=== PATIENT | female | born 1990 | race Caucasian/White ===

== ENCOUNTER → 2019-06-27 14:38 | Outpatient (CLI) | payer BC, SELFPAY ==
--- NOTE | ~2019-06-27 | US_ITS ---
EXAMINATION: US OB transvaginal DATE: 06/27/2019 14:59 INDICATION: Uncertain dates. TECHNIQUE: Real-time transvaginal pelvic ultrasound was performed. COMPARISON: None. FINDINGS: The uterus measures 7.2 x 5.3 x 4.6 cm. There is an intrauterine gestational sac. A yolk sac is ident ified. The crown rump length measures 9 mm, which correlates with an estimated gestational age of 6 weeks and 6 day(s) (+/-) 4 day(s). heart motion is identified measuring 121 beats per min [place] (bpm) by M-mode Doppler. The right ovary measures 2.4 x 1.7 x 2.1 cm. The left ovary measures 2.9 x 1.4 x 2.4 cm. There is no free fluid in the pelvis. IMPRESSION: 1. Single living intrauterine gestation with estimated date of delivery of 02/14/2020. Reviewed, dictated and finalized at location A. INE HEDDLE CLEANER IMPRESSION: 1. Single living intrauterine gestation with estimated date of delivery of 01/23.
== END ==
PROVIDERS: PCP Internal Medicine; Visit Provider Nurse Practitioner
DX: Z36.9 Encounter for antenatal screening, unspecified (principal); Z3A.00 Weeks of gestation of pregnancy not specified
CPT/HCPCS: 76817

== ENCOUNTER → 2019-07-10 15:54 | Outpatient (CLI) | payer BC, SELFPAY ==
--- NOTE | ~2019-07-10 | US_ITS ---
EXAMINATION: US OB transvaginal DATE: 07/10/2019 16:14 INDICATION: Vaginal spotting. TECHNIQUE: Real-time transvaginal obstetric ultrasound. FINDINGS: No prior studies for comparison. The uterus measures 8.4 x 6.6 x 6.8 cm. There is an intrauterine gestational sac, with pole ezequiel ntified. The crown rump length measures 2.16 cm. heart tones are identified measuring 179 bp m. Right ovary measures 3.8 x 3.1 x 2.3 cm. Left ovary not visualized. No free fluid in the pelvis. N o evidence for subchorionic hemorrhage. IMPRESSION: 1. SL IUP with an EGA of 8 weeks, 5 days (EDC by initial ultrasound of 02/14/2020). Appropriate interv al growth. Reviewed, dictated and finalized at location A. OR ACCOUNTING MANAGER IMPRESSION: 1. SL IUP with an EGA of 8 weeks, 5 days (EDC by initial ultrasound of 0). Appropriate interval growth.
== END ==
PROVIDERS: Visit Provider Obstetrics & Gynecology Gynecology
DX: O26.851 Spotting complicating pregnancy, first trimester (principal); Z3A.08 8 weeks gestation of pregnancy
CPT/HCPCS: 76817

== ENCOUNTER → 2019-08-11 15:31 | Outpatient (CLI) | payer BC, SELFPAY ==
--- NOTE | ~2019-08-11 | US_ITS ---
US OB limited 08/11/2019 15:57 Indication: Follow-up subchorionic hemorrhage Procedure: 07/10/2019 Comparison: High-resolution Limited obstetrical ultrasound using transabdominal technique Findings: There is a single living intrauterine with heart rate of 168 BPM. Amniotic fluid is subjectively normal. There is a low-lying anterior placenta. No free fluid in the pelvis. No evidence for subchorionic hemorrhage. Impression: 1: Single living intrauterine with heart rate of 168 BPM. Reviewed, dictated and finalized at location A. Impression: 1: Single living intrauterine with heart rate of 168 BPM.
== END ==
PROVIDERS: Visit Provider Obstetrics & Gynecology Gynecology
DX: O36.8910 Maternal care for other specified fetal problems, first trimester, not applicable or unspecified (principal); Z3A.00 Weeks of gestation of pregnancy not specified
CPT/HCPCS: 76815

== ENCOUNTER 2019-09-15 15:10 | Outpatient (CLI) | payer BC, SELFPAY ==
--- NOTE | ~2019-09-15 | US_ITS ---
EXAMINATION: US OB /maternal detail DATE: 09/15/2019 16:06 INDICATION: Second trimester anatomic survey TECHNIQUE: Real-time ultrasound of the pelvis was performed. COMPARISON: None. FINDINGS: There is a single living fetus in vertex presentation. The placenta is anterior and 5.4 cm from the i nternal cervical os. heart rate is 151 beats per minute (bpm). cardiac activity and feta l movement are noted. The amniotic fluid index is subjectively normal. The cisterna magna and nuchal fold are not well demonstrated due to positioning. The following anatomy was identified as normal: 4 chamber heart 3 vessel cord cord insertion kidneys urinary bladder stomach spine diaphragm ventricles cerebellum The following biometric data were obtained: Biparietal diameter (BPD): 4.3 cm; head circumference (HC): 16.4 cm; abdominal circumference (AC): 13 .7 cm; femur length (FL): 2.7 cm. These measurements are concordant. Estimated weight is 258 g +/- 38 g, which correlates with the 77th percentile when 02/14/2020 is used as estimated date of delivery. As single measurements, these parameters are each equal to the following estimated gestational ages w ith ranges of +/- 2 standard deviations: BPD: 19 weeks 0 days +/- 1 weeks 5 days. HC: 19 weeks 1 days +/- 1 weeks 3 days. AC: 19 weeks 1 days +/- 2 weeks 0 days. FL: 18 weeks 2 days +/- 1 weeks 6 days. estimated gestational age based solely on measurements from this exam is 18 weeks 6 days +/- 1 weeks 2 days. IMPRESSION: 1. Single living fetus in vertex presentation. 2. Estimated weight is 258 g +/- 38 g, which correlates with the 77th percentile when 02/14/2020 is used as estimated date of delivery. 3. Cisterna magna and nuchal fold not well demonstrated due to positioning. Reviewed, dictated and finalized at location A. IMPRESSION: 1. Single living fetus in vertex presentation. 2. Estimated weight is 258 g +/- 38 g, which correlates with the 77th per centile when 02/14/2020 is used as estimated date of delivery. 3. Cisterna magna and nuchal fold not well demonstrated due to positionin g.
== END 2019-09-15 15:11 | disposition home or self-care (01) ==
PROVIDERS: Visit Provider Obstetrics & Gynecology Gynecology
DX: Z36.89 Encounter for other specified antenatal screening (principal)
CPT/HCPCS: 76805

== ENCOUNTER 2019-10-04 13:02 | Outpatient (CLI) | payer BC, SELFPAY ==
--- NOTE | ~2019-10-04 | US_ITS ---
EXAMINATION: US OB limited DATE: 10/04/2019 13:29 INDICATION: Nonvisualized anatomy from prior anatomic survey. Estimated gestational age of 21 w eeks and 0 days. TECHNIQUE: Real-time ultrasound of the pelvis was performed. COMPARISON: Ultrasound 09/15/2019 FINDINGS: There is a single fetus in breech presentation. The placenta is anterior. heart rate is 161 be ats per minute (bpm). The amniotic fluid volume is subjectively normal. The ventricles, cerebellum, cisterna magna, and nuchal fold are normal. IMPRESSION: 1. Single living fetus in breech presentation. 2. Normal anatomic survey of the head. Reviewed, dictated and finalized at location A.
== END 2019-10-04 13:03 | disposition home or self-care (01) ==
PROVIDERS: PCP Internal Medicine; Visit Provider Obstetrics & Gynecology Gynecology
DX: Z36.2 Encounter for other antenatal screening follow-up (principal)
CPT/HCPCS: 76815

== ENCOUNTER → 2020-01-19 11:52 | Outpatient (CLI) | payer BC, SELFPAY ==
--- NOTE | ~2020-01-19 | US_ITS ---
EXAMINATION: US OB follow up DATE: 01/19/2020 12:22 INDICATION: Assess growth and amniotic fluid index during third trimester of . TECHNIQUE: Real-time ultrasound of the pelvis was performed. The interpreting radiologist was not pre sent for the study. COMPARISON: 10/04/2019 FINDINGS: There is a single living fetus in vertex presentation. The placenta is anterior and not low-lying. F etal heart rate is 157 beats per minute (bpm). The amniotic fluid index is 9.6 cm, which is normal ( 5th%-95%: 7.7-24.9 cm at the 6 weeks estimated gestational age) . The following biometric data were obtained: BPD: 9.1 cm -> 37 weeks 0 days Head circumference: 32.2 cm -> 36 weeks 2 days Abdominal circumference: 30.2 cm -> 34 weeks 1 days Femur length: 6.7 cm -> 34 weeks 3 days These measurements are concordant. Head circumference to abdominal circumference ratio: 1.07 (normal range 0.93-1.10). Estimated weight: 2502 g (+/-) 375 g. or 5 lbs. 8 oz. (+/-) 13 oz. IMPRESSION: 1. Single living fetus in vertex presentation with heart rate of 157 bpm. 2. Estimated weight is 15th percentile by Hadlock criteria when 02/20/2020 is used as the estima hector date of delivery (LYNNE). Please correlate with clinical information or earlier ultrasounds for mos t accurate LYNNE. 3. Normal amniotic fluid index of 9.6 cm. Reviewed, dictated and finalized at location A. IMPRESSION: 1. Single living fetus in vertex presentation with heart rate of 157 bpm. 2. Estimated weight is 15th percentile by Hadlock criteria when 02/20/2020 is used as the estimated date of delivery (LYNNE). Please correlate with clinica l information or earlier ultrasounds for most accurate LYNNE. 3. Normal amniotic fluid index of 9.6 cm.
== END ==
PROVIDERS: Visit Provider Nurse Practitioner
DX: O36.5990 Maternal care for other known or suspected poor fetal growth, unspecified trimester, not applicable or unspecified (principal); Z3A.00 Weeks of gestation of pregnancy not specified
CPT/HCPCS: 76816

== ENCOUNTER 2020-02-07 04:55 | Inpatient (IN) | payer BC, SELFPAY ==
[2020-02-07] VITALS (48 sets, daily range): BP systolic 65–128; BP diastolic 45–99; PULSE 79–206; RESP 14–16; TEMP 36.8–37.2; O2SAT 98–100; BMI 26.1
--- NOTE | 2020-02-07 05:28 | LDADM ---
This patient, Mona Cuevas, was admitted to Labor/Delivery/Recovery 102 on 02/07/20 at 04:55. Plans for labor, pain management and were discussed with patient. Patient/family oriented to hospital policies and general routines including ID bracelet, bed and alarms, visiting hours, pain management, procedures, bathroom and other care routines, personal items, smoking policy, room service/diet and guest tray routines, infant security routines, and visiting hours. Patient/Family are encouraged to report perceived risks to care and to ask questions if they do not understand what they are told or what they should do. See OBIX for further documentation.
[2020-02-07] MEDS: LACTATED RINGERS 1,000 ML 125 ML IV CONT ×2 (05:31→09:00)
[2020-02-07 05:38] LABS: Basophils Percent Auto 0.3 % (0.2-1.2); Hematocrit 31.2 % (37.0-47.0); Hemoglobin 10.7 g/dL (12.0-15.0); Immature Granulocyte Absolute 0.04 K/mm3 (0.00-0.031); Immature Granulocyte Percent A 0.5 % (0-0.5); Lymphocytes Absolute Auto 1.59 K/mm3 (0.9-3.2); Lymphocytes Percent Auto 20.8 % (18.3-44.2); Mean Corpuscular HGB Conc 34.3 g/dl (32-36); Mean Corpuscular Hemoglobin 32.1 pg (26-34); Mean Corpuscular Volume 93.7 fl (80-100); Mean Platelet Volume 10.2 fl (7.4-10.4); Monocytes Absolute Auto 0.6 K/mm3 (0.1-0.6); Neutrophils Absolute Auto 5.4 K/mm3 (1.3-6.7); Neutrophils Percent Auto 70.4 % (45.5-73.1); Platelet Count Result 221 k/mm3 (150-375); Red Blood Count 3.33 M/mm3 (4.2-5.4); Red Cell Distribution Width 12.7 % (11.5-14.5); White Blood Count 7.7 K/mm3 (4.5-10.0)
--- NOTE | 2020-02-07 06:55 | WPDANESEPP ---
Anes - Eval Pre Procedure Procedure: labor epidural Date/Time: 02/07/20 06:55 Preop Diagnosis: labor pain Pre Op Diagnosis: IOL Patient Data Age: 29 Gender: F Height: 5 ft 4 in Weight: 69 kg Last Vital Signs Pulse 93 02/07/20 06:31 BP 117/71 02/07/20 06:31 Allergies Allergy/AdvReac Type Severity Reaction Status Date / Time No Known Allergies Allergy Unverified 10/15/17 12:58 Home Medications Medication Instructions Recorded Confirmed Type PNV cmb#95-ferrous fumarate-FA 1 tablet PO DAILY 01/19/20 01/19/20 History [] Laboratory Tests 02/07/20 02/07/20 05:22 05:22 WBC 7.7 K/mm3 K/mm3 (4.5-10.0) RBC 3.33 M/mm3 L M/mm3 (4.2-5.4) Hgb 10.7 g/dL L g/dL (12.0-15.0) Hct 31.2 % L % (37.0-47.0) MCV 93.7 fl fl (80-100) MCH 32.1 pg pg (26-34) MCHC 34.3 g/dl g/dl (32-36) RDW 12.7 % % (11.5-14.5) Plt Count 221 k/mm3 k/mm3 (150-375) MPV 10.2 fl fl (7.4-10.4) Immature Gran % (Auto) 0.5 % % (0-0.5) Neut % (Auto) 70.4 % % (45.5-73.1) Lymph % (Auto) 20.8 % % (18.3-44.2) Rusk % (Auto) 8.0 % % (2.6-8.5) Eos % (Auto) 0.0 % % (0-4.4) Baso % (Auto) 0.3 % % (0.2-1.2) Lymph # (Auto) 1.59 K/mm3 K/mm3 (0.9-3.2) Rusk # (Auto) 0.6 K/mm3 K/mm3 (0.1-0.6) Eos # (Auto) 0.0 K/mm3 K/mm3 (0-0.3) Baso # (Auto) 0.0 K/mm3 K/mm3 (0.0-0.1) Abs Immat Gran (auto) 0.04 K/mm3 H K/mm3 (0.00-0.031) Absolute Neuts (auto) 5.4 K/mm3 K/mm3 (1.3-6.7) Absolute Nucleated RBC 0.0 K/mm3 K/mm3 (0.0-0.012) Nucleated RBC % 0.0 % % (0.0-0.2) RPR Pending Patient hx anesthesia problems: none Family hx anesthesia problems: none [facility] Family History Family History (Updated 01/19/20 @ 15:33 by Bharath Herrera RN) Other No pertinent family history Social History Social History Smoking status: Never smoker Alcohol intake: current Substance use: never Gender identity (if verbalized by the patient): Female Spiritual care concerns: No Exam Day of Procedure 02/07/20 06:55
--- NOTE | 2020-02-07 08:10 | P.HP_ITS ---
Obstetrics - Admit Note Admission Note: AROM clear fluid record reviewed. No pertinent additions to the history and/or any subsequent changes in the physical findings that are not consistent with the expected course of the were found. Additions to the history and/or subsequent changes in the physical findings fo llow. None.
[2020-02-07 10:52] LABS: Rapid Plasma Reagin Non-Reactive (NonReactive)
[2020-02-07] MEDS: OXYTOCIN 30 UNITS/NS 500 ML 30 UNITS/500 ML BAG 125 UNITS IV CONT (11:46)
--- NOTE | 2020-02-07 12:09 | P.PCNOB_ITS ---
OB - Delivery Note Procedure Delivery date: 02/07/20 Procedure: events: Labor Induction Intrapartal events: None Induction method: AROM and per pitocin protocol Delivery monitor: external FHT Route of delivery: Laceration description: Vaginal - 2nd Degree Delivery repair: vicryl Specimen: No Estimated blood loss (mL): 380 Anesthesia type: Epidural Disposition: floor [place] Baby Date of : 02/07/20 Time of : 11:00 Weeks of gestation at delivery: 39 gender: Male Weight (pounds): 6 Weight (ounces): 13 presentation: vertex position: Left Occiput Anterior cord vessel description: 3 Vessels score one minute: 8 score five minutes: 9
--- NOTE | 2020-02-07 13:36 | PC.NURSE ---
PT arrived on unit via wheelchair accompanied by spouse and and taken to room 281. PT oriented to room and surroundings. PT introductions made and plan of care discussed per post , pain management, breast feeding, daily care activities. Welcome packet reviewed and discussed. PT verbalized understanding of such care.
[2020-02-07] MEDS: IBUPROFEN 600 MG TABLET (15:15)
--- NOTE | 2020-02-07 15:15 | PC.NURSE ---
Consulted with patient, mother reports difficulties with latching. keeps tongue up and does not allow correct latch. Reviewed infant feeding cues, frequencies, duration of feedings, feeding elimination flow sheet, and signs of adequate intake. Demonstrated stimulation techniques to wake for feeding. Assisted with to breast, several attempts made before obtaining a correct latch. Reviewed positioning/alignment in cross cradle, holding breast in U hold and guided asymmetrical latch on. was able to latch correctly. Infant nursed sleepily with bursts of rhythmic draws and occasional swallowing noted. Reviewed signs of a correct latch, effective nursing and suck swallow ratio. Infant was able to maintain latch without discomfort to mother. Nipple care reviewed. Suggested mother stimulate while feeding to keep awake and nursing effectively for increased intake and to assist with maintaining deep latch. Demonstrated how to adjust latch more deeply while feeding. Instructed mother to call out for RN assistance if she is unable to latch for feeding or she has discomfort with nursing. Instructed feeding should be initiated three hours from start of last feeding or if feeding cues are noted before. Mother voiced understanding of information shared.
[2020-02-07] MEDS: ACETAMINOPHEN 325 MG TABLET 650 MG (15:16)
[2020-02-07] MEDS: DOCUSATE SODIUM 100 MG CAPSULE PO (17:36)
[2020-02-07] MEDS: IBUPROFEN 600 MG TABLET PO (23:13)
[2020-02-07] MEDS: ACETAMINOPHEN 325 MG TABLET 650 MG PO (23:14)
[2020-02-07] MEDS: LANOLIN (LANSINOH) 7.5 GM CREAM 1 APPLIC TOPICAL (23:30)
[2020-02-08 05:49] LABS: Hematocrit 24.2 % (37.0-47.0)
--- NOTE | 2020-02-08 06:45 | PC.NURSE ---
PT introductions made and plan of care discussed per post , pain management, breast feeding, pumping, bottle feeding, daily care activities. PT verbalized understanding of such care.
[2020-02-08 08:10] VITALS: BP 100/54; PULSE 77; RESP 18; TEMP 36.9; O2SAT 98
[2020-02-08 09:00] VITALS: PULSE 77; RESP 18; O2SAT 98
[2020-02-08] MEDS: DOCUSATE SODIUM 100 MG CAPSULE PO ×2 (09:34→17:00)
[2020-02-08] MEDS: POLYSACCHARIDE IRON COMPLEX 150 MG CAPSULE PO ×2 (09:34→17:00)
[2020-02-08] MEDS: MULTIVIT/MIN/PREN/FOL AC/IRON TABLET 1 TAB (09:34)
[2020-02-08] MEDS: ACETAMINOPHEN 325 MG TABLET 650 MG PO ×3 (09:35→22:09)
[2020-02-08] MEDS: IBUPROFEN 600 MG TABLET PO ×3 (09:35→22:08)
--- NOTE | 2020-02-08 10:15 | PC.NURSE ---
Consulted with patient, mother is attempting to breast. Mother reports has used the nipple shield during the night. keeps tongue up and does not allow correct latch. Mother has been set up with a pump, she is pumping after each feeding and will supplement. Discussed nipple shield precautions and possible complications. Instructions given on application and cleaning of shield. Patient able to return demonstration on proper application of shield. Discussed the need for regular pumping if continues to nurse with the shield. Patient verbalizes understanding. Reviewed infant feeding cues, frequencies, duration of feedings, feeding elimination flow sheet, and signs of adequate intake. Demonstrated stimulation techniques to wake for feeding. Assisted with to breast with nipple shield. Reviewed positioning/alignment in cross cradle, holding breast in U hold and guided asymmetrical latch on. Infant was able to latch correctly. nursed sleepily with bursts of rhythmic draws and occasional swallowing noted. Reviewed signs of a correct latch, effective nursing and suck swallow ratio. was able to maintain latch without discomfort to mother. Nipple care reviewed. Suggested mother stimulate while feeding to keep awake and nursing effectively for increased intake and to assist with maintaining deep latch. Demonstrated how to adjust latch more deeply while feeding. Instructed mother to call out for RN assistance if she is unable to latch infant for feeding or she has discomfort with nursing. Instructed feeding should be initiated three hours from start of last feeding or if feeding cues are noted before. Mother voiced understanding of information shared.
--- NOTE | 2020-02-08 10:43 | WPDANLDPN2 ---
Anes-Prog Note L&D Date/Time: 02/08/20 10:43 Comfortable throughout: labor and delivery Neuraxial method: epidural Epidural/Spinal procedure site: clean & non-tender Neuro status: Neuro function grossly intact. Cardiovascular status: normal Respiratory status: normal Airway patency: baseline Mental status: baseline Post-Op hydration status: normal Vital Signs: Last Vital Signs Temp 36.9 C 02/08/20 08:10 Pulse 77 02/08/20 09:00 Resp 18 02/08/20 09:00 BP 100/54 L 02/08/20 08:10 Pulse Ox 98 02/08/20 09:00 Pain score (VAS): 06/02 Post-procedural complaints: none Patient feedback: Patient satisfied with anesthetic care.
--- NOTE | 2020-02-08 17:31 | PM.OBPNVD ---
OB - PN: Subj Subjective Date/time seen: 02/08/20 17:31 doing well no complaints today OB - PN: Obj Data Labs CBC & Chem 7: 02/08/20 04:04 Labs: Laboratory Results - last 24 hr 02/08/20 04:04 Hgb 8.0 L Hct 24.2 L OB - PN A/P Assessment and Plan (1) (normal spontaneous vaginal delivery): Code(s): O80 - Encounter for full-term uncomplicated delivery Status: Acute Assessment and Plan: continue with pp care. Time Spent With Patient Time: Total time spent is greater than 50% in coordination of care (as documented) at patient's floor/unit and/or counseling patient: Exam GI: Other: ff below umbilicus
[2020-02-08 20:05] VITALS: BP 115/51; PULSE 92; RESP 16; TEMP 37; O2SAT 99
[2020-02-09] MEDS: WITCH HAZEL 40 PADS 1 PAD TOPICAL (07:42)
[2020-02-09] MEDS: BENZOCAINE 20% AER SPR (*SP) 56 GM CAN 1 SPRAY TOPICAL (07:42)
[2020-02-09] MEDS: IBUPROFEN 600 MG TABLET PO (07:43)
[2020-02-09] MEDS: POLYSACCHARIDE IRON COMPLEX 150 MG CAPSULE PO (07:43)
[2020-02-09] MEDS: DOCUSATE SODIUM 100 MG CAPSULE PO (07:43)
[2020-02-09 07:45] VITALS: BP 112/62; PULSE 71; RESP 14; TEMP 36.7
[2020-02-09] MEDS: ACETAMINOPHEN 325 MG TABLET 650 MG PO (10:42)
--- NOTE | 2020-02-09 10:51 | PM.OBPNVD ---
OB - PN: Subj Subjective Date/time seen: 02/09/20 10:51 doing well ready for discharge. Pain okay with medications OB - PN: Obj Data Labs CBC & Chem 7: 02/08/20 04:04 OB - PN A/P Assessment and Plan (1) (normal spontaneous vaginal delivery): Code(s): O80 - Encounter for full-term uncomplicated delivery Status: Acute Assessment and Plan: continue with prn meds. continue iron supplements daily. f/u in office in 6 weeks. Time Spent With Patient Time: Total time spent is greater than 50% in coordination of care (as documented) at patient's floor/unit and/or counseling patient: Exam Narrative: Exam Narrative: ff below umbilicus
[2020-02-10 11:23] VITALS: BP 114/62; PULSE 85; RESP 20; O2SAT 99
--- NOTE | 2020-02-23 11:51 | PM.OBDSVD ---
DS: Admitting Diagnosis Admitting Diagnosis Admitting Diagnosis: IOL DS: Discharge Diagnosis Discharge Diagnosis (1) (normal spontaneous vaginal delivery): Code(s): O80 - Encounter for full-term uncomplicated delivery Status: Acute OB - DS: Summary OB Procedures : Ultrasound OB Procedures Intrapartum: Spontaneous Vag Delivery OB Procedures: : None Time Spent with Patient Time attestation: Total time spent providing and/or coordinating discharge services: Exam Const: General: comfortable GI: GI Palp: Yes Soft to palpation Discharge Plan Discharge Attending physician on discharge: Prudencio Velasquez Discharging Clinician: Prudencio Velasquez Patient Disposition: Home, Self-Care Activity: may shower Diet: as tolerated Discharge Instructions: Education: Mom and Baby Guide Given to: Mother Follow-Up: Call your delivering provider's office for an appointment to be seen in: 4-6 Weeks Mom and baby should come to the [facility] for the follow-up appointment. Appointment Date/Time: February 10, 2020 at 11:00 am What to expect at your follow-up visit: Blood Pressure Check Physical Assessment Call [phone] if you are unable to keep your appointment time. BREAST CARE: * Wear a snug supportive bra. * For engorgement discomfort: Breast Feeding: * Apply warm moist washcloths * Express milk as needed to relieve engorgement * Wear loose clothing * For sore nipples: * Identify correct latch-on * Apply warm moist washcloths before and after nursing * Air dry nipples after nursing * May apply Lansinoh cream to nipples EPISIOTOMY/PERINEAL CARE: * Until bleeding stops, use your emmanuel bottle after urinating * Change your pad frequently throughout the day * You may take sitz baths several times a day (fill your bathtub with warm water and soak for 20 minutes.) Do NOT bathe in the water * No tub baths until seen by your physician - You may shower ACTIVITY: * Rest as much as possible. * Do not exercise or lift anything heavier than your baby (such as laundry or other children.) * Avoid stairs or driving as much as possible. * Do not put anything into the vagina. No douching, tampons, or sexual activity until seen by physician. NOTIFY PHYSICIAN IF YOU HAVE ANY QUESTIONS OR IF ANY OF THE FOLLOWING SYMPTOMS OCCUR: * If your perineum becomes red, swollen, or more painful than what you have experienced in the hospital. * If your vaginal bleeding becomes foul smelling. * If your vaginal bleeding becomes more heavy than a period or if your bleeding changes from pink to bright red. However, you may pass an occasional walnut-sized clot once or twice for the first week . * If you experience a sharp, shooting pain in you calves. * If you discover a hard, reddened area on your breast or if you experience flu-like symptoms. DIET: * Eat regular, well-balanced meals. * Drink plenty of fluids daily. If , drink to thirst. Stand Alone Forms: General Discharge Information Follow-up/Referrals: Rhonda Espinoza MD [Physician] - Discharge Medications: New polysaccharide iron complex 150 mg iron Capsule 150 mg PO BIDWM Qty: 60 RF: 0 ibuprofen 600 mg Tablet 600 mg PO Q6H PRN (Reason: Cramping) Qty: 60 RF: 0 Continued PNV cmb#95-ferrous fumarate-FA [] 28 mg iron- 800 mcg Tablet 1 tablet PO DAILY RF: 0 Date of admission: 02/07/20 04:55 Primary Care Provider: Jaquan Estes Admitting Provider: Rhonda Espinoza Discharge Date/Time: 02/09/20 14:24 Attending physician on admission: Prudencio Velasquez Condition: Stable
== END 2020-02-09 14:24 | disposition home or self-care (01) | DRG 807 ==
LOC: ANHOB2 02-09 12:05 → ANHLDR 02-12 15:12 → ANHOB2 02-12 15:12
PROVIDERS: Admitting Provider Obstetrics & Gynecology Gynecology; PCP Internal Medicine; Visit Provider Obstetrics & Gynecology
DX: O76 Abnormality in fetal heart rate and rhythm complicating labor and delivery (principal); Z37.0 Single live birth; O70.1 Second degree perineal laceration during delivery; Z3A.39 39 weeks gestation of pregnancy
CPT/HCPCS: 36415; 85014; 85018; 85025; 86592; 86850; 86900; 86901; A9270; J2590; J2795; J7120